=== PATIENT | male | born 1960 | race Caucasian/White ===

== ENCOUNTER 2018-03-27 20:29 | Emergency (ER) | payer BC ==
[2018-03-27] MEDS ORDERED: DIPH,PERTUS(ACELL)TETVAC-LF 0.5 ML VIAL IM ONE (20:53)
[2018-03-27] MEDS ORDERED: SODIUM CHLORIDE 0.9% 1,000 ML IV STA (20:53)
[2018-03-27] MEDS ORDERED: HYDROmorphone 1 MG/ML 1 ML SYRINGE IVP STA ×2 (20:53→21:48)
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
[2018-03-27 21:13] LABS: Basophils # (A) 0.1 k/uL (0-0.2); Basophils % (A) 1 %; Eosinophils # (A) 0.4 k/uL (0-0.7); Eosinophils % (A) 2 %; HCT 50.5 % (39.0-53.0); HGB 16.5 gm/dL (13.0-17.5); Lymphocytes # (A) 2.2 k/uL (1.0-4.8); Lymphocytes % (A) 13 %; MCH 29.9 pg (25.0-35.0); MCHC 32.6 g/dL (31.0-37.0); MCV 91.7 fL (80.0-100.0); Mean Platelet Volume 6.6; Monocytes % (A) 6 %; Neutrophils # (A) 12.5 k/uL (1.3-7.7); Neutrophils % (A) 77 %; Platelet Count 331 k/uL (150-450); RBC 5.51 m/uL (4.30-5.90); RDW 13.3 % (11.5-15.5); WBC 16.3 k/uL (3.8-10.6)
[2018-03-27 21:17] LABS: INR 0.9 (<1.2); Partial Thromboplastin Time 24.1 sec (22.0-30.0); Prothrombin Time 10.2 sec (9.0-12.0)
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
[2018-03-27 21:20] LABS: ALT 44 U/L (21-72); AST 38 U/L (17-59); Albumin 4.9 g/dL (3.5-5.0); Alcohol <10 mg/dL; Alkaline Phosphatase 116 U/L (38-126); Amylase 53 U/L (30-110); Anion Gap 12 mmol/L; Blood Urea Nitrogen 18 mg/dL (9-20); Calcium 10.1 mg/dL (8.4-10.2); Carbon Dioxide 22 mmol/L (22-30); Chloride 109 mmol/L (98-107); Glucose 105 mg/dL (74-99); Lipase 128 U/L (23-300); Potassium 4.1 mmol/L (3.5-5.1); Sodium 143 mmol/L (137-145); Total Bilirubin 1.2 mg/dL (0.2-1.3)
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
[2018-03-27 21:31] LABS: Glucose,Whole Blood 107 mg/dL (75-99)
[2018-03-27 21:35] LABS: Creatine Kinase 212 U/L (55-170)
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
[2018-03-27 21:48] LABS: Creatine Kinase MB 1.7 ng/mL (0.0-2.4); Troponin I <0.012 ng/mL (0.000-0.034)
[2018-03-27 21:49] VITALS: TEMP 98.2
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
[2018-03-27] MEDS ORDERED: ETOMIDATE 2 MG/ML 10 ML VIAL IVP STA (22:56)
[2018-03-27 23:45] LABS: Amphetamine Screen,Urine Not Detected (NotDetected); Barbiturate Screen,Urine Not Detected (NotDetected); Benzodiazepines Screen,Urine Not Detected (NotDetected); Cocaine Screen,Urine Not Detected (NotDetected); Methadone Screen, Urine Not Detected (NotDetected); Opiate Screen,Urine Not Detected (NotDetected); Oxycodone Screen, Urine Not Detected (NotDetected); Phencyclidine Screen,Urine Not Detected (NotDetected); Tricyclic Antidepressant,Urine Not Detected (NotDetected); Urn Cannabinoid Scrn Not Detected (NotDetected)
[2018-03-27 23:49] VITALS: BP 189/109; PULSE 89; RESP 18
[2018-03-27 23:55] LABS: Appearance,Urine Clear (Clear); Bilirubin,Urine Negative (Negative); Blood,Urine Moderate (Negative); Color,Urine Yellow; Glucose,Urine (UA) Negative (Negative); Granular Casts,Urine 52 /lpf (0); Ketones,Urine 1+ (Negative); Leukocyte Esterase,Urine Negative (Negative); Mucus,Urine Rare /hpf; Nitrite,Urine Negative (Negative); PH, Urine 6.5 (5.0-8.0); Protein,Urine Negative (Negative); RBC,Urine 17 /hpf (0-5); Specific Gravity,Urine 1.034 (1.001-1.035); Urobilinogen,Urine <2.0 mg/dL (<2.0); WBC,Urine 1 /hpf (0-5)
[2018-03-28] MEDS ORDERED: ACET/COD 300 MG/30 MG STARTER PACK 6 TAB BTL PO STA (00:02)
[2018-03-28] MEDS ORDERED: hydrALAZINE HCL 20 MG/ML 1 ML VIAL IVP STA (00:04)
--- NOTE | 2018-03-28 00:13 | XR ---
EXAMINATION TYPE: XR wrist limited LT DATE OF EXAM: 03/27/2018 COMPARISON: Today HISTORY: Postreduction TECHNIQUE: 2 views FINDINGS: There is comminuted fractures of the distal radius with some impaction. There is no disloca tion. There is some anterior displacement of the carpus in relation to the shaft of the radius. There is nondisplaced fracture ulnar styloid process. IMPRESSION: Fractures as above. Comminuted displaced fracture of the distal radius is improved in pos ition compared to initial exam.
[2018-03-28] MEDS ORDERED: amLODIPine 5 MG TAB PO STA (00:37)
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
== END 2018-03-28 01:02 | disposition home or self-care (01) ==
LOC: EC 20:29
DX: S59.202A Unspecified physeal fracture of lower end of radius, left arm, initial encounter for closed fracture (principal); S52.612A Displaced fracture of left ulna styloid process, initial encounter for closed fracture; S60.512A Abrasion of left hand, initial encounter; S00.81XA Abrasion of other part of head, initial encounter; M54.5 Low back pain; F17.200 Nicotine dependence, unspecified, uncomplicated; Z79.1 Long term (current) use of non-steroidal anti-inflammatories (NSAID); Z23 Encounter for immunization; V86.02XA Driver of snowmobile injured in traffic accident, initial encounter; Y92.410 Unspecified street and highway as the place of occurrence of the external cause
CPT/HCPCS: 36415; 93005; 86900; 86901; 80053; 82150; 82550; 82553; 83605; 83690; 84484; 85025; 85610; 85730; 86850; 81001; 80306; 80320; 72170; 73090; 73100; 71045; 73200; 72125; 70450; 71260; 74177; 90715; 99285; 25605; 99152; 96374; 96375; 96376; 96361 ×4; 90471; J0360; J1170; Q9967

== ENCOUNTER 2018-04-02 14:06 | Observation (INO) | payer BC ==
[2018-03-31 08:55] VITALS: BMI 29.5
[~2018-04-02 14:06] MED LIST: HYDROmorphone 0.5 MG/0.5 ML SYRINGE IVP PRN; SCOPOLAMINE 1.5MG/72HR PATCH TRANSDERM ONE; ceFAZolin IN SWFI 2 GM/20 ML SYRINGE IVP ONE
[2018-04-02] MEDS ORDERED: LIDOCAINE 1% 20 ML VIAL (10MG/ML) FOR IV START INTRADERMA ONE (15:00)
[2018-04-02] MEDS: LACTATED RINGERS 1,000 ML IV SCH (15:00)
[2018-04-02] MEDS: ONDANSETRON 4 MG/2 ML VIAL IVP ONE ×2 (15:03→19:43)
[2018-04-02] MEDS: DEXAMETHASONE SOD PHOSPHATE 10 MG/ML 1 ML VIAL IV ONE ×2 (15:03→19:44)
[2018-04-02] MEDS ORDERED: fentaNYL (PF) 50 MCG/ML 2 ML AMP IVP ONE (15:08)
[2018-04-02] MEDS: MIDAZOLAM 2 MG/2 ML VIAL IV PRN ×2 (15:08→15:12)
--- NOTE | 2018-04-02 15:41 | P.ONQ ---
Anesthesiology Proc Note - PNB - Peripheral Nerve Block Performed Left Supraclavicular Single Time Out Performed: Yes Procedure Start Time: 15:07 Procedure Stop Time: 15:20 Indication: Requested by physician Specifically requested for management of pain by DrCarmelita: Charles Graham Sedation Type: Sedate with meaningful contact maintained Preparation: Sterile Prep Position: Supine Needle Types: Other (see comment) Needle Size: 100mm (4") (joel) Needle Gauge: 21 Technique: Ultrasound Injectate: 0.5% Ropivacaine (see comment for volume) Blood Aspirated: No Pain Paresthesia on Injection Noted: No Resistance on Injection: Normal Events: Uneventful and Well Tolerated (20 ml)
[2018-04-02] MEDS: ENALAPRILAT 1.25 MG/ML 1 ML VIAL IVP STA ×3 (15:57→21:19)
[2018-04-02] MEDS ORDERED: hydrALAZINE HCL 20 MG/ML 1 ML VIAL IVP PRN (17:27)
[2018-04-02] MEDS ORDERED: hydrALAZINE HCL 20 MG/ML 1 ML VIAL IV ONE (17:32)
[2018-04-02] MEDS ORDERED: ONDANSETRON 4 MG/2 ML VIAL IVP PRN (18:01)
[2018-04-02] MEDS ORDERED: HYDROmorphone 1 MG/ML 1 ML SYRINGE IV PRN (18:01)
[2018-04-02] MEDS ORDERED: NALOXONE 0.4 MG/ML 1 ML VIAL IV PRN (18:01)
[2018-04-02] MEDS ORDERED: SODIUM CHLORIDE 0.9% 1,000 ML IV SCH (18:15)
[2018-04-02 19:15] LABS: Basophils # (A) 0.1 k/uL (0-0.2); Basophils % (A) 0 %; Eosinophils # (A) 0.3 k/uL (0-0.7); Eosinophils % (A) 2 %; HCT 48.6 % (39.0-53.0); HGB 15.8 gm/dL (13.0-17.5); Lymphocytes # (A) 0.9 k/uL (1.0-4.8); Lymphocytes % (A) 6 %; MCH 30.4 pg (25.0-35.0); MCHC 32.6 g/dL (31.0-37.0); MCV 93.3 fL (80.0-100.0); Mean Platelet Volume 7.2; Monocytes # (A) 0.2 k/uL (0-1.0); Monocytes % (A) 1 %; Neutrophils # (A) 14.2 k/uL (1.3-7.7); Neutrophils % (A) 90 %; Platelet Count 295 k/uL (150-450); RBC 5.21 m/uL (4.30-5.90); RDW 13.3 % (11.5-15.5); WBC 15.7 k/uL (3.8-10.6)
--- NOTE | 2018-04-02 19:23 | P.HPADDEND ---
H&P Addendum H&P Addendum Date: 04/02/18 Mr. Lacey is a 57-year-old male who was scheduled to undergo ORIF of a complex left distal radius and radial shaft fracture. In preop, his blood pressure was found to be markedly elevated (>190/100). This improved with administration of blood pressure medications but still not to an optimal range for the proposed surgery. I discussed this in detail with the patient and the anesthesiologist and recommended postponing the procedure. I cited the increased risks of hemorrhage, compartment syndrome as well as intraoperative cardiovascular or cerebrovascular events. In addition, he still had moderately severe edema and skin irritation (from his splint) in the area of the planned incisions. The patient expressed understanding and was in agreement to postpone surgery. We will admit him for observation and consult internal medicine for evaluation and management of his uncontrolled hypertension. The patient admits that he has not seen a primary care physician in some time and does not take any regular medications except a multivitamin. He is a current one pack per day smoker. Since he did have a supraclavicular nerve block, we will continue regular neurovascular checks to monitor for compartment syndrome. He was instructed to continue icing and elevating the left wrist and perform regular range of motion exercises of the fingers. Once his blood pressure has been controlled on oral medication, he may be discharged home (if the internal medicine team is in agreement). We will reschedule him for outpatient surgery next week.
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
[2018-04-02 19:26] LABS: ALT 56 U/L (21-72); AST 39 U/L (17-59); Albumin 4.7 g/dL (3.5-5.0); Alkaline Phosphatase 118 U/L (38-126); Anion Gap 12 mmol/L; Blood Urea Nitrogen 19 mg/dL (9-20); Calcium 9.7 mg/dL (8.4-10.2); Carbon Dioxide 19 mmol/L (22-30); Chloride 111 mmol/L (98-107); Glucose 111 mg/dL (74-99); Potassium 4.3 mmol/L (3.5-5.1); Sodium 142 mmol/L (137-145); Total Bilirubin 1.2 mg/dL (0.2-1.3); Total Protein 7.8 g/dL (6.3-8.2)
[2018-04-02] MEDS: ENOXAPARIN 40 MG/0.4 ML SYRINGE SQ SCH (20:59)
[2018-04-02] MEDS: NICOTINE 21MG/24HR PATCH TRANSDERM SCH (21:00)
[2018-04-02] MEDS: HYDROcodone/APAP 5-325MG 1 EACH TAB PO PRN (21:00)
[2018-04-02] MEDS ORDERED: MELATONIN 3 MG TABLET PO PRN (21:23)
[2018-04-02] MEDS: LISINOPRIL 10 MG TAB PO SCH (21:43)
[2018-04-02] MEDS: amLODIPine 5 MG TAB PO SCH (21:43)
[2018-04-03] MEDS: HYDROcodone/APAP 5-325MG 1 EACH TAB PO PRN ×3 (01:42→12:44)
[2018-04-03] MEDS: LACTATED RINGERS 1,000 ML IV SCH (05:50)
[2018-04-03] MEDS ORDERED: PANTOPRAZOLE 40 MG TABLET PO SCH (07:30)
[2018-04-03 07:41] VITALS: RESP 14; TEMP 98
[2018-04-03] MEDS: NICOTINE 21MG/24HR PATCH TRANSDERM SCH (09:22)
[2018-04-03] MEDS: amLODIPine 5 MG TAB PO SCH (09:22)
[2018-04-03] MEDS: ENOXAPARIN 40 MG/0.4 ML SYRINGE SQ SCH (09:22)
[2018-04-03] MEDS: LISINOPRIL 10 MG TAB PO SCH (09:22)
--- NOTE | 2018-04-03 10:03 | P.PN ---
Subjective Progress Note Date: 04/03/18 Principal diagnosis: Distal radius/ulna fracture left wrist. Hypertension. This is a 57-year-old male who is scheduled for open reduction internal fixation of the left distal radius. His blood pressure was significantly elevated in preop holding. It was discussed with anesthesia and it was decided that the surgery would be postponed. The patient is admitted overnight to control his hypertension and for internal medicine evaluation and preoperative clearance. Patient's blood pressure has stabilized today. Objective - Vital Signs Vital signs: Vital Signs Temp 98.0 F 04/03/18 07:00 Pulse 82 04/03/18 07:00 Resp 14 04/03/18 07:00 BP 141/79 04/03/18 07:00 Pulse Ox 95 04/03/18 07:00 Intake & Output 04/02/18 04/03/18 04/03/18 18:59 06:59 18:59 Intake Total 500 510 Balance 500 510 Intake: IV 500 Intake, IV Titration 160 Amount Lactated Ringers 1,000 ml 160 @ 20 mls/hr IV .Q24H [facility] Rx#:[id number] Oral 350 Other: Voiding Method Toilet Urinal # Voids 2 2 - Exam This is a pleasant 57-year-old male in no acute distress. He is alert and oriented 3. Exam of the upper extremity reveals a splint is intact. He has full finger motion with minimal pain. Capillary refill is less than 3 seconds to the fingers. Neurovascular status to the upper extremity is intact. - Labs CBC & Chem 7: 04/02/18 18:55 04/02/18 18:55 Labs: Abnormal Lab Results - Last 24 Hours (Table) 04/02/18 04/02/18 Range/Units 18:55 18:55 WBC 15.7 H (3.8-10.6) k/uL Neutrophils # 14.2 H (1.3-7.7) k/uL Lymphocytes # 0.9 L (1.0-4.8) k/uL Chloride 111 H (98-107) mmol/L Carbon Dioxide 19 L (22-30) mmol/L Creatinine 0.60 L (0.66-1.25) mg/dL Glucose 111 H (74-99) mg/dL Assessment and Plan (1) Hypertension Current Visit: Yes Status: Acute Code(s): I10 - ESSENTIAL (PRIMARY) HYPERTENSION SNOMED Code(s): 47487410 (2) Closed fracture distal radius and ulna Current Visit: No Status: Acute Code(s): S52.509A - UNSP FRACTURE OF THE LOWER END OF UNSP RADIUS, INIT; S52.609A - UNSP FRACTURE OF LOWER END OF UNSP ULNA, INIT FOR CLOS FX SNOMED Code(s): 66359126 Plan: The clinical findings are discussed the patient. He may be discharged to home today if cleared medically. Our office will contact him on Thursday to reschedule his surgery for next week.
[2018-04-03 10:57] VITALS: BP 160/74; PULSE 80
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
--- NOTE | 2018-04-04 09:44 | P.DS ---
Providers Date of admission: 04/02/18 18:01 Expected date of discharge: 04/03/18 Attending physician: Charles Graham DO Consults: 04/02/18 18:08 Consult Physician Routine Consulting Provider: Herson Yañez Consult Reason/Comments: Medical management a presurgical eval Do you want consulting provider notified?: Yes Primary care physician: Stated None - Discharge Diagnosis(es) (1) Closed fracture distal radius and ulna Status: Acute (2) Hypertension Status: Acute Hospital Course: The patient was scheduled to undergo outpatient ORIF for a left distal radius fracture. Preop vitals showed markedly elevated blood pressure which failed to adequately improve with medication. The procedure was cancelled and the patient was admitted for further evaluation and management. He was seen and treated by the internal medicine team and his blood pressure improved. He was discharged home on oral anti-hypertensives and instructed to establish care with a PCP. He will follow up with Dr. Graham and his fracture surgery will be rescheduled outpatient. Patient Condition at Discharge: Stable Plan - Discharge Summary Discharge Rx Participant: Yes New Discharge Prescriptions: New amLODIPine [Norvasc] 5 mg PO DAILY #30 tab Lisinopril [Zestril] 10 mg PO DAILY #30 tab Nicotine 21Mg/24Hr Patch [Habitrol] 1 patch TRANSDERM DAILY #14 patch Continue Multivitamins, Thera [Multivitamin (formulary)] 1 tab PO DAILY HYDROcodone/APAP 5-325MG [[place] 5-325] 1 tab PO Q6HR PRN PRN Reason: Pain Discharge Medication List Multivitamins, Thera [Multivitamin (formulary)] 1 tab PO DAILY 03/27/18 [History ] HYDROcodone/APAP 5-325MG [[place] 5-325] 1 tab PO Q6HR PRN 03/31/18 [History] Lisinopril [Zestril] 10 mg PO DAILY #30 tab 04/03/18 [Rx] Nicotine 21Mg/24Hr Patch [Habitrol] 1 patch TRANSDERM DAILY #14 patch 04/03/18 [ Rx] amLODIPine [Norvasc] 5 mg PO DAILY #30 tab 04/03/18 [Rx] Follow up Appointment(s)/Referral(s): Radha Arango MD [REFERRING] - 1 Week Petrocelli,Charles A, DO [Medical Doctor] - As Needed (Patient to call Thursday to make appointment for outpatient surgery) Patient Instructions/Handouts: Wrist Fracture in Adults (DC) Activity/Diet/Wound Care/Special Instructions: Patient to find primary care physician and follow up with them. Maintain splint left upper extremity. Continue Ice & elevation. Our office will call him to reschedule his surgery for next week. Discharge Disposition: HOME SELF-CARE
== END 2018-04-03 13:04 | disposition home or self-care (01) ==
LOC: OR 14:06 → EDSTATUS 16:15 → 4SSUR 18:01
PROVIDERS: ADMIT Orthopaedic Surgery; ATTEND Orthopaedic Surgery
DX: I10 Essential (primary) hypertension (principal); Z53.09 Procedure and treatment not carried out because of other contraindication; S52.502A Unspecified fracture of the lower end of left radius, initial encounter for closed fracture; S52.202A Unspecified fracture of shaft of left ulna, initial encounter for closed fracture; D72.829 Elevated white blood cell count, unspecified; F17.210 Nicotine dependence, cigarettes, uncomplicated; M54.9 Dorsalgia, unspecified; G89.29 Other chronic pain; Z80.9 Family history of malignant neoplasm, unspecified; Z79.899 Other long term (current) drug therapy; V86.52XA Driver of snowmobile injured in nontraffic accident, initial encounter; Y93.29 Activity, other involving ice and snow
CPT/HCPCS: 64418; 96376; 96372 ×2; 96374; 96375 ×2; 93005; 80053; 85025; 71046; G0378 ×2; S4990 ×2; J2250; J0360; J1100; J2405; J1650 ×2; J3010; J1170

== ENCOUNTER 2018-04-09 11:26 | Day surgery (SDC) | payer BC ==
[~2018-04-09 11:26] MED LIST changes: +DEXAMETHASONE SOD PHOSPHATE 10 MG/ML 1 ML VIAL IV ONE; -HYDROmorphone 0.5 MG/0.5 ML SYRINGE IVP PRN; +MIDAZOLAM (PF) 2 MG/2 ML VIAL IV PRN; +ONDANSETRON 4 MG/2 ML VIAL IVP ONE; -SCOPOLAMINE 1.5MG/72HR PATCH TRANSDERM ONE
[2018-04-09] MEDS: LACTATED RINGERS 1,000 ML IV SCH (12:21)
[2018-04-09] MEDS ORDERED: LIDOCAINE 1% 20 ML VIAL (10MG/ML) FOR IV START INTRADERMA ONE (12:32)
[2018-04-09] MEDS ORDERED: GLYCOPYRROLATE 0.2 MG/ML 2 ML VIAL ONE (15:05)
[2018-04-09] MEDS ORDERED: SUCCINYLCHOLINE CHLORIDE 100 MG/5 ML SYR IV ONE (15:05)
[2018-04-09] MEDS ORDERED: fentaNYL (PF) 50 MCG/ML 2 ML AMP ONE (15:05)
[2018-04-09] MEDS ORDERED: HYDROmorphone (PF) 1 MG/ML ONE (15:05)
[2018-04-09] MEDS ORDERED: MIDAZOLAM 2 MG/2 ML VIAL ONE (15:05)
[2018-04-09] MEDS ORDERED: ePHEDrine SULFATE/0.9% NACL/PF 50 MG/5 ML SYRINGE IV ONE (15:05)
[2018-04-09] MEDS ORDERED: KETOROLAC 30 MG/ML 1 ML VIAL ONE (15:05)
[2018-04-09] MEDS ORDERED: LIDOCAINE 1% INJ 10MG/ML (20 ML MDV) ONE (15:05)
[2018-04-09] MEDS ORDERED: PROPOFOL 10 MG/ML 20 ML VIAL IV ONE (15:05)
[2018-04-09] MEDS ORDERED: ONDANSETRON 4 MG/2 ML VIAL ONE (15:05)
[2018-04-09] MEDS ORDERED: BUPIVACAIN-EPI 0.5%-1:200,000 30 ML VIAL SQ ONE ×2 (15:08)
[2018-04-09] MEDS ORDERED: LACTATED RINGERS 1,000 ML IV ONE (19:20)
[2018-04-09] MEDS: HYDROmorphone 0.5 MG/0.5 ML SYRINGE IVP PRN ×4 (21:20→21:45)
[2018-04-09] MEDS ORDERED: LACTATED RINGERS 1,000 ML IV SCH (22:00)
[2018-04-09] MEDS ORDERED: fentaNYL (PF) 50 MCG/ML 2 ML AMP IVP ONE ×2 (22:00→22:10)
[2018-04-09 22:48] VITALS: BMI 29.0
[2018-04-09] MEDS: oxyCODONE-APAP 5-325MG 1 EACH TAB PO PRN (22:54)
[2018-04-09] MEDS ORDERED: ONDANSETRON 4 MG/2 ML VIAL IVP PRN (23:16)
[2018-04-09] MEDS ORDERED: ceFAZolin 2,000 MG in DEXTROSE/WATER 1 50ML.BAG IVPB STA (23:16)
[2018-04-09] MEDS ORDERED: ceFAZolin IN SWFI 2 GM/20 ML SYRINGE IVP STA (23:23)
[2018-04-10 00:39] VITALS: RESP 18
[2018-04-10] MEDS: LACTATED RINGERS 1,000 ML IV SCH (01:03)
[2018-04-10] MEDS: oxyCODONE-APAP 5-325MG 1 EACH TAB PO PRN ×3 (02:43→10:35)
[2018-04-10 08:19] VITALS: BP 161/80; PULSE 86; TEMP 99.3
[2018-04-10] MEDS ORDERED: HYDROmorphone 1 MG/ML 1 ML SYRINGE IVP STA (08:54)
--- NOTE | 2018-04-10 10:45 | FL ---
Fluoroscopy History: FRACTURE 38 sec fluoro time. [address] Graham.
[2018-04-10] MEDS ORDERED: oxyCODONE-APAP 10-325MG 1 EACH TAB PO PRN (12:11)
[2018-04-10] MEDS ORDERED: LISINOPRIL 10 MG TAB PO SCH (12:15)
[2018-04-10] MEDS ORDERED: amLODIPine 5 MG TAB PO SCH (12:15)
--- NOTE | 2018-04-10 12:50 | P.PN ---
Progress Note - Text Progress Note Date: 04/10/18 Orthopedic Surgery - Progress Note S: Pt states pain became quite intense overnight but has been gradually improving with oral meds. Significant improvement after Dilaudid IVP. Reports pain in hand and forearm (worse volarly). Also notes decreased sensation in thumb. He's been working on ROM of fingers and trying to elevate. Hasn't used much ice. O: LUE - splint in place. FREDA slightly tight proximally - loosened and rewrapped. Pt felt immediate relief. Moderately severe edema of hand and fingers (only marginally increased since surgery). Able to perform limited AROM of fingers (due to swelling) but does not cause significant pain. Diminished light touch sensation in left thumb. Improved but persistent paresthesias across all digits. Hand warm & well perfused A: POD #1 S/p ORIF left distal radius and radial shaft with open CTR P: Splint adjusted and rewrapped. Instructed to continue ICE & elevation. Encourage finger ROM. Increase percocet to 2 tabs every 4 hours but return to 1 tab once pain level subsides. Plan for DC home this afternoon once pain control improves. Follow up outpatient in 5-7 days for wound check.
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
== END 2018-04-10 14:48 | disposition home or self-care (01) ==
LOC: OR 11:26 → 1SOBS 20:23 → OR 04-10 14:48
PROVIDERS: ATTEND Orthopaedic Surgery
DX: S52.572A Other intraarticular fracture of lower end of left radius, initial encounter for closed fracture (principal); S52.352A Displaced comminuted fracture of shaft of radius, left arm, initial encounter for closed fracture; S52.612A Displaced fracture of left ulna styloid process, initial encounter for closed fracture; G56.02 Carpal tunnel syndrome, left upper limb; Y93.29 Activity, other involving ice and snow; I10 Essential (primary) hypertension; Z87.891 Personal history of nicotine dependence; Z79.891 Long term (current) use of opiate analgesic; Z79.899 Other long term (current) drug therapy
CPT/HCPCS: 73100; 25609; 64721; C1713; J2250; J2405; J2001; J3010; J1885; J1170 ×3; J0330; J2704; J0690

== ENCOUNTER → 2020-08-01 | Outpatient (CLI) | payer BC ==
[~2020-08-01] MED LIST changes: -DEXAMETHASONE SOD PHOSPHATE 10 MG/ML 1 ML VIAL IV ONE; -MIDAZOLAM (PF) 2 MG/2 ML VIAL IV PRN; -ONDANSETRON 4 MG/2 ML VIAL IVP ONE; +REGADENOSON 0.4 MG/5 ML SYRINGE IV ONE; -ceFAZolin IN SWFI 2 GM/20 ML SYRINGE IVP ONE
--- NOTE | 2020-08-01 11:38 | NM ---
EXAMINATION TYPE: NM stress lexiscan cardiolite DATE OF EXAM: 08/01/2020 COMPARISON: NONE HISTORY: Chest pain TECHNIQUE: After the intravenous administration of 9.7 mCi Tc 99m Sestamibi - Cardiolite resting SPE CT images acquired 45 minutes post injection. The patient received 0.4mg Lexiscan, 24.8 mCi Tc 99m Sestamibi - Stress images obtained [address] injection FINDINGS: Review of stress and rest SPECT images demonstrates no distinct perfusion abnormality. Gated analysi s shows normal wall motion with an estimated left ventricular ejection fraction of 51 %. IMPRESSION: No scintigraphic evidence for reversible ischemia.
--- NOTE | 2020-08-01 14:08 | EST ---
EXERCISE STRESS DATE OF SERVICE: 08/01/2020 AGE: 60 SEX: M HT: @@ WT: @@ PROTOCOL: @@ STAGE: @@ DURATION OF EXERCISE: @@ HEART RATE REST: @@ BLOOD PRESSURE REST: @@ MAXIMUM HEART RATE ACHIEVED: @@ MAXIMUM BLOOD PRESSURE: @@ 85% MPHR: @@ 100% MPHR: @@ METS: @@ RESULTS: Pretesting physical examination showed a heart rate of 61, pressure is 159/92 mmHg. Baseline EKG showed sinus mechanism. 0.4 mg of Lexiscan given over 15 seconds per protocol. Max heart rate was 85 beats per minute. Maximum pressure was 151/92 mmHg. Clinically the patient did not have any symptoms and the EKG did not show any significant ST or T-wave abnormalities concerning for ischemia. CONCLUSION: 1. Nondiagnostic electrocardiogram stress response to Lexiscan. 2. Please follow up on the Cardiolite portion on a separate report from Radiology Department. MMODL / IJN: [id number] /
== END | disposition home or self-care (01) ==
LOC: RADNMMAIN 08:30
PROVIDERS: ATTEND Family Medicine
DX: R07.9 Chest pain, unspecified (principal)
CPT/HCPCS: 93017; 78452; A9500; J2785

== ENCOUNTER → 2020-10-30 | Outpatient (CLI) | payer BC ==
[2020-10-30 16:27] LABS: HGB 14.8 gm/dL (13.0-17.5); MCH 32.5 pg (25.0-35.0); MCHC 34.4 g/dL (31.0-37.0); MCV 94.3 fL (80.0-100.0); Mean Platelet Volume 7.3; Platelet Count 345 k/uL (150-450); RBC 4.56 m/uL (4.30-5.90); WBC 9.6 k/uL (3.8-10.6)
[2020-10-30 16:34] LABS: Appearance,Urine Clear (Clear); Bilirubin,Urine Negative (Negative); Blood,Urine Trace (Negative); Color,Urine Yellow; Glucose,Urine (UA) Negative (Negative); Ketones,Urine Negative (Negative); Leukocyte Esterase,Urine Negative (Negative); Mucus,Urine Rare /hpf; Nitrite,Urine Negative (Negative); Protein,Urine Negative (Negative); RBC,Urine 2 /hpf (0-5); Specific Gravity,Urine 1.014 (1.001-1.035); Squamous Epithelial Cell,Urine <1 /hpf (0-4); Urobilinogen,Urine <2.0 mg/dL (<2.0); WBC,Urine 5 /hpf (0-5)
[2020-10-30 16:35] LABS: INR 0.9 (<1.2); Partial Thromboplastin Time 24.2 sec (22.0-30.0)
[2020-10-30 16:40] LABS: ALT 34 U/L (4-49); AST 31 U/L (17-59); African American GFR (CKD) >90 (>60 ml/min/1.73 sqM); Albumin 4.5 g/dL (3.5-5.0); Alkaline Phosphatase 96 U/L (38-126); Anion Gap 9 mmol/L; Blood Urea Nitrogen 18 mg/dL (9-20); Calcium 9.8 mg/dL (8.4-10.2); Carbon Dioxide 24 mmol/L (22-30); Chloride 105 mmol/L (98-107); Glucose 104 mg/dL (74-99); Non-African American GFR(CKD) >90 (>60 ml/min/1.73 sqM); Potassium 3.7 mmol/L (3.5-5.1); Sodium 138 mmol/L (137-145); Total Bilirubin 0.6 mg/dL (0.2-1.3); Total Protein 7.2 g/dL (6.3-8.2)
== END | disposition home or self-care (01) ==
LOC: LABPAT 15:33
PROVIDERS: ATTEND Orthopaedic Surgery
DX: Z01.812 Encounter for preprocedural laboratory examination (principal); M16.11 Unilateral primary osteoarthritis, right hip
CPT/HCPCS: 36415; 80053; 81001; 85027; 85610; 85730; 87070

== ENCOUNTER 2020-11-05 07:44 | Day surgery (SDC) | payer BC ==
[2020-10-30 10:38] VITALS: BMI 29.5
[~2020-11-05 07:44] MED LIST changes: +ACETAMINOPHEN TAB 500 MG TAB PO PRN; +DEXAMETHASONE SOD PHOSPHATE 4 MG/ML 1 ML VIAL IV ONE; +GABAPENTIN 300 MG CAP PO PRN; +MELOXICAM 7.5 MG TAB PO PRN; +ONDANSETRON 4 MG/2 ML VIAL IVP ONE; -REGADENOSON 0.4 MG/5 ML SYRINGE IV ONE; +ROPIVACAINE/EPI/CLONIDINE/KET 50 ML SYRINGE MISCELLANE PRN; +TRANEXAMIC ACID 1,000 MG in SODIUM CHLORIDE 0.9% 100 ML IVPB PRN
[2020-11-05] MEDS: LACTATED RINGERS 1,000 ML IV SCH (08:30)
[2020-11-05] MEDS ORDERED: HYDROmorphone 1 MG/ML 1 ML SYRINGE IVP PRN (08:59)
[2020-11-05] MEDS ORDERED: NALOXONE 0.4 MG/ML 1 ML VIAL IV PRN (08:59)
[2020-11-05] MEDS ORDERED: hydrOXYzine pamoate 25 MG CAP PO PRN (08:59)
[2020-11-05] MEDS ORDERED: ONDANSETRON 4 MG/2 ML VIAL IVP PRN (08:59)
[2020-11-05] MEDS ORDERED: HYDROmorphone 0.2 MG/1 ML SYRINGE IVP PRN (08:59)
[2020-11-05] MEDS ORDERED: MAGNESIUM HYDROXIDE 2,400 MG/10 ML CUP PO PRN (08:59)
[2020-11-05] MEDS ORDERED: diazePAM 5 MG TAB PO PRN (08:59)
[2020-11-05] MEDS ORDERED: HYDROmorphone 0.5 MG/0.5 ML SYRINGE IVP PRN (08:59)
[2020-11-05] MEDS ORDERED: HYDROcodone/APAP 7.5-325MG 1 EACH TAB PO PRN (09:01)
[2020-11-05] MEDS ORDERED: LIDOCAINE 1% INJ 10MG/ML (20 ML MDV) ONE (09:02)
[2020-11-05] MEDS ORDERED: MIDAZOLAM 2 MG/2 ML VIAL ONE (09:02)
[2020-11-05] MEDS ORDERED: PROPOFOL 10 MG/ML 20 ML VIAL IV ONE (09:02)
[2020-11-05] MEDS ORDERED: HEPARIN SODIUM,PORCINE 10,000 UNIT/ML 1 ML VIAL ONE (09:02)
[2020-11-05] MEDS ORDERED: SODIUM CHLORIDE 0.9% 100 ML BAG ONE (09:02)
[2020-11-05] MEDS ORDERED: KETAMINE 10 MG/ML 20 ML VIAL ONE (09:02)
[2020-11-05] MEDS ORDERED: GLYCOPYRROLATE 0.2 MG/ML 2 ML VIAL ONE (09:02)
[2020-11-05] MEDS ORDERED: TRANEXAMIC ACID 1,000 MG/10 ML VIAL ONE (09:02)
[2020-11-05] MEDS ORDERED: SODIUM CHLORIDE 0.9% IRRIG 1,000 ML BTL IRRIGATION ONE (09:02)
[2020-11-05] MEDS ORDERED: PHENYLEPHRINE-0.9% NACL SYG 1,000 MCG/10 ML SYRINGE ONE (09:02)
[2020-11-05] MEDS ORDERED: fentaNYL (PF) 50 MCG/ML 2 ML AMP ONE (09:02)
[2020-11-05] MEDS ORDERED: ceFAZolin 1,000 MG in SODIUM CHLORIDE 0.9% 1,000 ML IRRIGATION ONE (09:05)
[2020-11-05] MEDS ORDERED: LACTATED RINGERS 1,000 ML IV ONE ×3 (09:49→12:25)
--- NOTE | 2020-11-05 10:30 | P.OP ---
Date of Procedure: 11/05/20 Preoperative Diagnosis: Severe osteoarthritis right hip Postoperative Diagnosis: Severe osteoarthritis right hip Procedure(s) Performed: Right total hip arthroplasty with a direct anterior approach Implants: [employer] Polarstem standard size 1 [employer] R3, 3 hole hemispherical acetabular shell, 52 mm [employer] Reflection 6.5 mm cancellus screw, 20 mm 2 [employer] R3, XLPE 20 acetabular liner [employer]hew Oxinium femoral head 36 m, +0 All components were press-fit. The articulation is Oxinium on polyethylene. Anesthesia: spinal Surgeon: Bo Queen Analysis Manager #1: Norma Frias Estimated Blood Loss (ml): 100 Pathology: other (Femoral head) Condition: stable Disposition: PACU Indications for Procedure: After failure of conservative treatment we discussed the surgical and nonsurgic al treatment options at length. Patient wishes to proceed with a total hip arthroplasty with a direct anterior approach. Complications specific to this procedure were discussed at length, including but not limited to infection, leg length discrepancy, dislocation, nerve injury, and fracture. Covid-19 was also discussed at length with the patient, and they are aware of the current policies and procedures. The patient was given the option of delaying surgery, but they elect to proceed knowing these risks. Patient is aware of all these complications and informed consent was obtained Operative Findings: The operative findings are consistent with severe osteoarthritis of the right hip Description of Procedure: Patient was seen and evaluated in the preoperative area and the consent was reviewed. The operative site was marked with a skin marker. The patient was then brought to the operating room and given preoperative antibiotics intravenously. 1 g of Tranexamic acid was also given intravenously. A spinal anesthetic was administered by the anesthesia department. The patient was then placed on the Burlington table with the bony prominences well-padded. The hip area was then prepped with a ChloraPrep solution and draped in the usual sterile fashion. A universal timeout was then performed, which confirmed the patient's name, surgical site, ALLERGIES, and procedure being performed on the consent. Next the incision site was located at 1 cm distal to the anterior superior iliac spine along the flexion crease of the hip. The skin and subcutaneous tissues were sharply incised. Incision was carefully dissected down to the fascia overlying the tensor fascia yaritza muscle. This fascia was then incised in line with the incision. Care was taken to stay laterally in order to avoid injuring the lateral femoral cutaneous nerve. Next, using blunt finger dissection, the tensor fascia yaritza muscle was dissected off its investing fascia. The muscle was then carefully retracted laterally with a cobra retractor over the lateral neck of the femur. Next, the circumflex vessels were identified and cauterized using the AquaMantis device. The anterior hip capsule was then exposed. The capsule was then opened and an inverted T fashion. Cobra retractors were then placed intracapsularly. The retractors were maintained intracapsular throughout the procedure. The proximal femur was then visualized. A small amount of traction was placed on the leg. The femoral neck was then osteotomized appropriate level above the lesser trochanter. A small wedge of bone was then removed from the remaining femoral head. Next, using a corkscrew the femoral head was removed from the acetabulum. On gross visual inspection, the femoral head had complete loss of articular cartilage and multiple periarticular osteophytes. The femoral head was then measured. Attention was then turned to the acetabulum. The acetabulum was exposed and any remaining labrum was excised. Sequential reaming of the acetabulum was performed using fluoroscopic guidance until there was a good bed of bleeding cancellus bone. When the appropriate size was reached, a trial was then placed. The position and fit of the trial was checked with fluoroscopy. The trial was then removed. Then, using fluoroscopic guidance, the final implant was impacted at 20 of anteversion and 40 of abduction, and fully seated in the acetabulum. 2 screws were then placed in the acetabulum. Again fluoroscopy was used to check position of the screws. Next, the liner was then impacted, with a 20 elevated liner located in the anterior superior quadrant. Component locking was confirmed. Attention was then directed to the femur. With the aid of the Burlington table, the femur was externally rotated to approximately 130, extended, and adducted under the opposite leg. A side hook was then placed under the proximal femur, and the side hook elevator was used to elevate the proximal femur while releasing the capsule. Retractors were then placed. A capsular release was performed, as well as a release of the conjoined tendon, which afforded excellent visualiz ation of the proximal femur. Next, a box osteotome was used to lateralize the proximal femur. A merchandise pickup/receiving associate was then used to locate the femoral canal. Sequential broaching was then performed with appropriate size which afforded excellent fixation in the proximal femur. A trial was then placed with appropriate head and neck, and the hip was gently reduced with the aid of the Burlington table. Fluoroscopy was then used to check position of the components, as well as to ensure equal leg lengths. The hip was then gently dislocated and the trials were then removed. Final implants were then impacted and the hip was again reduced. Final fluoroscopic x-rays confirmed that the components were in anatomic position, as well as equal leg lengths. The hip was also taken through range of motion, and found to be stable. The hip was then copiously irrigated with antibiotic solution with pulsatile lavage. The hip was then irrigated with Irrisept solution. The soft tissues were then injected with a ropivacaine solution, which consisted of 246.25 mg of ropivacaine, 0.5 mg of epinephrine, 30 mg of Toradol, 80 g of clonidine, and 48.45 mL of sterile water, for a total of 100 mL of fluid injected. A second dose of 1 g of Tranexamic acid was also given intravenously. Any blood collected by Cell Saver was then returned to the patient at this time. The fascia was then closed with 2-0 strata fix suture. The subcutaneous tissue was closed with 3-0 Vicryl. The subcuticular tissue was closed with 3-0 strata fix suture. The skin was then closed with Exofin skin glue. After the glue and dried, and Optifoam silver impregnated dressing was applied. The patient was then transferred to the recovery room in stable condition. The carpenter's assistant ANABELL Heredia was required due to the complexity of surgery, and the need for skilled surgical technician for positioning, draping, exposure, retraction, and closure of the wound.
--- NOTE | 2020-11-05 10:49 | XR ---
EXAMINATION TYPE: XR Hip Limited RT DATE OF EXAM: 11/05/2020 COMPARISON: NONE HISTORY: Postop TECHNIQUE: Two view submitted. FINDINGS: There is postsurgical change in near anatomic alignment. There is soft tissue edema and emphysema. IMPRESSION: 1. Postoperative change. Appears in near-anatomic alignment.
--- NOTE | 2020-11-05 10:50 | FL ---
EXAMINATION TYPE: FL guidance operating room DATE OF EXAM: 11/05/2020 HISTORY: Fluoroscopy time 18 seconds of fluoroscopy provided. IMPRESSION: 1. Fluoroscopy time.
[2020-11-05] MEDS: HYDROmorphone 0.5 MG/0.5 ML SYRINGE IVP PRN ×3 (10:59→12:25)
--- NOTE | 2020-11-05 11:50 | XR ---
EXAMINATION TYPE: XR Hip Limited RT DATE OF EXAM: 11/05/2020 CLINICAL HISTORY: Right hip pain and osteoarthritis. TECHNIQUE: Single AP portable view of right hip is obtained immediately postoperatively. COMPARISON: Pelvic x-ray March 27, 2018. FINDINGS: Metallic hardware from right hip arthroplasty is seen and appears satisfactory in alignment and position. There is evidence of recent surgery with surrounding subcutaneous gas noted. IMPRESSION: Metallic hardware from right hip arthroplasty is satisfactory in position.
[2020-11-05] MEDS ORDERED: SODIUM CHLORIDE 0.9% 1,000 ML IV ONE ×2 (14:45)
[2020-11-05] MEDS: SODIUM CHLORIDE 0.9% 1,000 ML IV SCH ×2 (16:14→22:11)
[2020-11-05] MEDS: HYDROcodone/APAP 7.5-325MG 1 EACH TAB PO PRN (16:23)
[2020-11-05] MEDS ORDERED: SENNOSIDES-DOCUSATE SODIUM 1 EACH TAB PO SCH (21:00)
[2020-11-05] MEDS: ASPIRIN 325 MG TAB PO SCH (22:10)
[2020-11-06] MEDS ORDERED: MELOXICAM 7.5 MG TAB PO PRN (05:00)
[2020-11-06] MEDS ORDERED: TRANEXAMIC ACID 1,000 MG in SODIUM CHLORIDE 0.9% 100 ML IVPB PRN ×4 (05:00)
[2020-11-06] MEDS ORDERED: ROPIVACAINE/EPI/CLONIDINE/KET 50 ML SYRINGE MISCELLANE PRN (05:00)
[2020-11-06] MEDS ORDERED: ACETAMINOPHEN TAB 500 MG TAB PO PRN (05:00)
[2020-11-06] MEDS ORDERED: GABAPENTIN 300 MG CAP PO PRN (05:00)
[2020-11-06] MEDS: LACTATED RINGERS 1,000 ML IV SCH (05:58)
[2020-11-06] MEDS: HYDROcodone/APAP 7.5-325MG 1 EACH TAB PO PRN (06:33)
[2020-11-06 08:01] VITALS: BP 134/78; PULSE 56; RESP 16; TEMP 97.8
[2020-11-06] MEDS: ASPIRIN 325 MG TAB PO SCH (08:11)
--- NOTE | 2020-11-06 08:58 | P.DS ---
Providers Expected date of discharge: 11/06/20 Attending physician: Bo Queen Consults: 11/05/20 08:59 Consult Physician Routine Consulting Provider: Ghassan Suggs Consult Reason/Comments: medical mangement Do you want consulting provider notified?: Yes Primary care physician: Dacia Hudson - Discharge Diagnosis(es) (1) S/P total hip arthroplasty Current Visit: Yes Status: Acute (2) Osteoarthritis of right hip Current Visit: Yes Status: Acute Hospital Course: This is a 60-year-old male with known history of degenerative arthritis of the right hip. The patient presented for evaluation as an outpatient. After discussion and consideration patient elects to proceed with total hip arthroplasty. The patient is seen preoperatively by Dr. Queen and medically cleared for surgery by their primary care physician. Patient is admitted to [facility] on 11/05/2020 for total hip arthroplasty. The procedure is performed without complication or sequelae. The patient is doing well postoperatively. Labs and vital signs are stable on day of discharge. On day of discharge patient's hip incision is healing well. There is minimal erythema. There is no drainage noted at this time. There is minimal soft tissue swelling to the hip and thigh. Patient has full foot and ankle motion without difficulty or pain. Calf is soft and nontender to palpation. Neurovascular status to the right lower extremity is intact. Patient is discharged home in good condition. Opioid start talking form is reviewed and signed. Please see med rec for accurate list of home medications. Plan - Discharge Summary Discharge Rx Participant: Yes New Discharge Prescriptions: New Sennosides [Senokot] 2 tab PO DAILY PRN #60 tablet PRN Reason: Constipation Ondansetron Odt [Zofran Odt] 1 tab PO Q8HR PRN #10 tab PRN Reason: Nausea Aspirin 325 mg PO BID #60 tab HYDROcodone/APAP 7.5-325MG [Genoa 7.5-325] 1 - 2 tab PO Q6H PRN #32 tab PRN Reason: Pain No Action Multivitamins, Thera [Multivitamin (formulary)] 1 tab PO DAILY amLODIPine [Norvasc] 5 mg PO QAM Atorvastatin [Lipitor] 20 mg PO DAILY Lisinopril-Hctz 20-25 mg [Zestoretic 20-25] 20 - 25 mg PO DAILY Ibuprofen [Motrin] 800 mg PO RT-Q8H PRN PRN Reason: Pain Discharge Medication List Multivitamins, Thera [Multivitamin (formulary)] 1 tab PO DAILY 03/27/18 [History] amLODIPine [Norvasc] 5 mg PO QAM 04/07/18 [History] Aspirin 325 mg PO BID #60 tab 11/05/20 [Rx] Atorvastatin [Lipitor] 20 mg PO DAILY 11/05/20 [History] HYDROcodone/APAP 7.5-325MG [Genoa 7.5-325] 1 - 2 tab PO Q6H PRN #32 tab 11/05/20 [Rx] Ibuprofen [Motrin] 800 mg PO RT-Q8H PRN 11/05/20 [History] Lisinopril-Hctz 20-25 mg [Zestoretic 20-25] 20 - 25 mg PO DAILY 11/05/20 [History] Ondansetron Odt [Zofran Odt] 1 tab PO Q8HR PRN #10 tab 11/05/20 [Rx] Sennosides [Senokot] 2 tab PO DAILY PRN #60 tablet 11/05/20 [Rx] Follow up Appointment(s)/Referral(s): Bo Queen DO [Doctor of Osteopathic Medicine] - 2 Weeks Activity/Diet/Wound Care/Special Instructions: Weightbearing as tolerated with walker. Leave dressing intact. Dressing may be removed by home care nurse or by patient in 7 days. Then change dressing twice daily until follow up. May shower with initial dressing intact and after removal. If dressing become saturated, please remove. Please take aspirin 325mg twice daily for 30 days to prevent blood clots. Recommend use of compression stockings daily until follow up to help prevent swelling and blood clots. May remove at night before sleeping. Please follow-up with [facility] in 2 weeks and call with any questions or concerns, . Discharge Disposition: HOME WITH HOME HEALTH SERVICES
[2020-11-06 09:37] LABS: HCT 34.5 % (39.6-50.0); HGB 11.6 g/dL (13.0-17.0); MCH 31.7 pg (27.0-32.0); MCHC 33.6 g/dL (32.0-37.0); MCV 94.3 fL (80.0-97.0); Mean Platelet Volume 10.5 fL (9.5-12.2); Platelet Count 253 X 10*3/uL (140-440); RBC 3.66 X 10*6/uL (4.40-5.60); RDW 12.4 % (11.5-14.5); WBC 15.72 X 10*3/uL (4.50-10.00)
[2020-11-06 10:07] LABS: Basophils # (A) 0.02 X 10*3/uL (0.00-0.10); Basophils % (A) 0.1 %; Eosinophils # (A) 0.03 X 10*3/uL (0.04-0.35); Eosinophils % (A) 0.2 %; Lymphocytes % (A) 12.7 %; Monocytes # (A) 2.14 X 10*3/uL (0.20-1.00); Monocytes % (A) 13.6 %; Neutrophils # (A) 11.44 X 10*3/uL (1.80-7.70); Neutrophils % (A) 72.8 %
--- NOTE | 2020-11-06 13:51 | P.CONS ---
History of Present Illness - Reason for Consult Consult date: 11/05/20 Medical Management of history of hypertension and high cholesterol - History of Present Illness This is a 60-year-old male with a past medical history of hypertension, hyperlipidemia, osteoarthritis and was admitted for elective surgery of right hip arthroplasty with Dr. Queen. Patient primary care provider is Dr. Cade and takes lisinopril/hydrochlorothiazide along with Norvasc and Lipitor in the outpatient setting. Home medications were held to monitor closely for postoperative hypotension and most recent blood pressure is 134/78 and instructed the patient to resume home medications. Patient has been up and walking with a walker and will be having rehab in the outpatient setting and will be following closely in the outpatient setting with orthopedics and continued on aspirin 325 mg twice daily for DVT prophylaxis. Patient denies any chest pain, shortness of breath, or palpitations. Patient is afebrile. No reports of nausea or vomiting noted and patient is tolerating diet. Patient was medically cleared by primary care physician for elective surgery prior to admission yesterday. Review of Systems Constitutional: Denies chills, Denies fever Cardiovascular: Denies chest pain, Denies shortness of breath Respiratory: Denies cough Gastrointestinal: Denies abdominal pain, Denies diarrhea, Denies nausea, Denies vomiting Musculoskeletal: Denies myalgias Integumentary: Denies pruritus, Denies rash Neurological: Denies numbness, Denies weakness Psychiatric: Denies anxiety, Denies depression Endocrine: Denies fatigue, Denies weight change Past Medical History Past Medical History: Hyperlipidemia, Hypertension, Osteoarthritis (OA) Additional Past Medical History / Comment(s): fx left wrist fx,recent admission for elevated b/p,broken ribs, chronic back pain History of Any Multi-Drug Resistant Organisms: None Reported Past Surgical History: Orthopedic Surgery Additional Past Surgical History / Comment(s): left wrist surgery. COLONOSCOPY Past Anesthesia/Blood Transfusion Reactions: No Reported Reaction Additional Past Anesthesia/Blood Transfusion Reaction / Comm: never has had general anesthesia or blood transfusion Past Psychological History: No Psychological Hx Reported Smoking Status: Current some day smoker Past Alcohol Use History: Occasional Additional Past Alcohol Use History / Comment(s): Pt. reports he smoked for 5-6 years and then quit for 10 years, and then restarted smoking in 1998-WILL SMOKE A FEW WHEN OUT WITH FRIENDS Past Drug Use History: Marijuana Additional Drug Use History / Comment(s): uses marijuana approx 3-4 times per yr. MAINLY USING GUMMIES AT NIGHT FOR PAIN-INSTRUCTED TO REFRAIN FROM USE FOR AT LEAST 24 HOURS PRIOR TO PROCEDURE - Past Family History Mother Family Medical History: Cancer Medications and Allergies Home Medications Medication Instructions Recorded Confirmed Type Multivitamins, Thera [Multivitamin 1 tab PO DAILY 03/27/18 11/05/20 History (formulary)] amLODIPine [Norvasc] 5 mg PO QAM 04/07/18 11/05/20 History Aspirin 325 mg PO BID #60 tab 11/05/20 Rx Atorvastatin [Lipitor] 20 mg PO DAILY 11/05/20 11/05/20 History HYDROcodone/APAP 7.5-325MG [Schneider 1 - 2 tab PO Q6H PRN #32 tab 11/05/20 Rx 7.5-325] Ibuprofen [Motrin] 800 mg PO RT-Q8H PRN 11/05/20 11/05/20 History Lisinopril-Hctz 20-25 mg 20 - 25 mg PO DAILY 11/05/20 11/05/20 History [Zestoretic 20-25] Ondansetron Odt [Zofran Odt] 1 tab PO Q8HR PRN #10 tab 11/05/20 Rx Sennosides [Senokot] 2 tab PO DAILY PRN #60 tablet 11/05/20 Rx Allergies Allergy/AdvReac Type Severity Reaction Status Date / Time No Known Allergies Allergy Verified 11/05/20 08:04 Physical Exam Vitals: Vital Signs Temp Pulse Resp BP Pulse Ox 11/06/20 08:11 56 L 16 11/06/20 08:00 97.8 F 56 L 16 134/78 96 11/06/20 02:00 97.6 F 71 17 116/67 95 11/05/20 20:00 98.2 F 78 16 103/64 95 11/05/20 16:05 97.9 F 68 16 121/74 96 11/05/20 14:30 68 18 132/70 98 11/05/20 13:30 51 L 16 129/66 99 11/05/20 13:00 70 16 124/60 98 11/05/20 12:15 58 L 14 126/64 100 11/05/20 11:45 85 14 118/59 100 11/05/20 11:35 53 L 16 112/57 100 11/05/20 11:20 52 L 16 121/62 100 11/05/20 11:05 74 16 122/60 100 11/05/20 10:50 97.7 F 52 L 14 131/65 100 Intake and Output 11/05/20 11/06/20 11/06/20 22:59 06:59 14:59 Intake Total 240 Balance 240 Intake: Oral 240 Other: # Voids 1 Weight 91.4 kg Gen: This is a 60-year-old male awake, alert and oriented 3, well-developed, well-nourished. HEENT: Head is atraumatic, normocephalic. Pupils equal, round. Sclerae is anicteric. NECK: Supple. No JVD. No lymphadenopathy. No thyromegaly. LUNGS: Clear to auscultation. No wheezes or rhonchi. No intercostal retractions. HEART: Regular rate and rhythm. No murmur. ABDOMEN: Soft. Bowel sounds are present. No masses. No tenderness. EXTREMITIES: No pedal edema. No calf tenderness. Right hip surgical dressing is dry and intact with no surrounding erythema and minimal swelling noted NEUROLOGICAL: Patient is awake, alert and oriented x3. Cranial nerves 2 through 12 are grossly intact. Results CBC & Chem 7: 11/06/20 05:57 Assessment and Plan Assessment: Status post right hip arthroplasty secondary to degenerative arthritis of the right hip Mild leukocytosis, most likely reactive secondary to recent surgery Hypertension Hyperlipidemia Remote history of nicotine use Osteoarthritis Chronic back pain History of left wrist fracture requiring surgery DVT prophylaxis per primary service Plan: Recommend to resume home blood pressure medications on discharge and instructed the patient to monitor blood pressure readings and follow-up with primary care provider on discharge. She will be continued on aspirin 325 mg twice daily per orthopedic recommendations and will be following up with Dr. Queen in the outpatient setting in 2-3 weeks. White blood count this morning minimally elevated at 15.72 which is most likely reactive and recommending outpatient follow-up with repeat labs to monitor the downward trend. Patient is afebrile with no reports of shortness of breath or coughing. Vital signs are stable. Patient is anticipating discharge today and has worked with physical therapy and will be having rehab in the outpatient setting with family at the bedside. Will continue to follow with orthopedics during hospitalization. Thank you for this consultation. Time with Patient: Greater than 30
== END 2020-11-06 10:38 | disposition home health service (06) ==
LOC: OR 07:44 → 4SSUR 10:50 → OR 11-06 10:38
PROVIDERS: ATTEND Orthopaedic Surgery
DX: M16.11 Unilateral primary osteoarthritis, right hip (principal); Z79.899 Other long term (current) drug therapy; E78.2 Mixed hyperlipidemia; I10 Essential (primary) hypertension; M16.12 Unilateral primary osteoarthritis, left hip
CPT/HCPCS: 97161; 97165; 86891; 86900; 86901; 85025; 86850; 88300; 87635; 73501; 27130; P9022; C1776; J2250; J1644; J1100; J0690 ×3; J2405; J2001; J3010; J2370; J2704; J1170

== ENCOUNTER → 2021-02-01 | Outpatient (CLI) | payer BC ==
[2021-02-01 13:11] LABS: HCT 42.9 % (39.0-53.0); HGB 14.2 gm/dL (13.0-17.5); MCH 31.5 pg (25.0-35.0); MCHC 33.1 g/dL (31.0-37.0); MCV 95.1 fL (80.0-100.0); Mean Platelet Volume 8.1; Platelet Count 287 k/uL (150-450); RBC 4.51 m/uL (4.30-5.90); RDW 12.9 % (11.5-15.5); WBC 9.9 k/uL (3.8-10.6)
[2021-02-01 13:19] LABS: ALT 48 U/L (4-49); AST 48 U/L (17-59); African American GFR (CKD) >90 (>60 ml/min/1.73 sqM); Alkaline Phosphatase 137 U/L (38-126); Anion Gap 10 mmol/L; Blood Urea Nitrogen 17 mg/dL (9-20); Calcium 9.3 mg/dL (8.4-10.2); Carbon Dioxide 28 mmol/L (22-30); Chloride 103 mmol/L (98-107); Glucose 92 mg/dL (74-99); Non-African American GFR(CKD) >90 (>60 ml/min/1.73 sqM); Potassium 3.7 mmol/L (3.5-5.1); Sodium 141 mmol/L (137-145); Total Bilirubin 0.8 mg/dL (0.2-1.3); Total Protein 6.9 g/dL (6.3-8.2)
[2021-02-01 13:21] LABS: Appearance,Urine Clear (Clear); Bilirubin,Urine Negative (Negative); Blood,Urine Negative (Negative); Color,Urine Yellow; Glucose,Urine (UA) Negative (Negative); Ketones,Urine Negative (Negative); Leukocyte Esterase,Urine Negative (Negative); Nitrite,Urine Negative (Negative); PH, Urine 6.5 (5.0-8.0); Protein,Urine Trace (Negative); Specific Gravity,Urine 1.028 (1.001-1.035)
[2021-02-01 13:22] LABS: INR 0.9 (<1.2); Partial Thromboplastin Time 25.1 sec (22.0-30.0); Prothrombin Time 9.7 sec (9.0-12.0)
== END | disposition home or self-care (01) ==
LOC: LABPAT 11:23
PROVIDERS: ATTEND Orthopaedic Surgery
DX: Z01.812 Encounter for preprocedural laboratory examination (principal)
CPT/HCPCS: 36415; 80053; 81003; 85027; 85610; 85730; 87070

== ENCOUNTER 2021-02-11 08:42 | Day surgery (SDC) | payer BC, OTHER ==
[2021-02-07 11:39] VITALS: BMI 30.4
[~2021-02-11 08:42] MED LIST changes: +HYDROcodone/APAP 7.5-325MG 1 EACH TAB PO PRN; +HYDROmorphone 0.2 MG/1 ML SYRINGE IVP PRN; +HYDROmorphone 0.5 MG/0.5 ML SYRINGE IVP PRN; +MAGNESIUM HYDROXIDE 2,400 MG/10 ML CUP PO PRN; +NALOXONE 0.4 MG/ML 1 ML VIAL IV PRN; +ONDANSETRON 4 MG/2 ML VIAL IVP PRN; -ROPIVACAINE/EPI/CLONIDINE/KET 50 ML SYRINGE MISCELLANE PRN
[2021-02-11] MEDS: LACTATED RINGERS 1,000 ML IV SCH (09:35)
[2021-02-11] MEDS ORDERED: LIDOCAINE 1% (10MG/ML) FOR IV START INTRADERMA ONE (09:35)
[2021-02-11] MEDS ORDERED: fentaNYL (PF) 50 MCG/ML 2 ML AMP ONE (09:46)
[2021-02-11] MEDS ORDERED: PROPOFOL 10 MG/ML 20 ML VIAL IV ONE (09:46)
[2021-02-11] MEDS ORDERED: TRANEXAMIC ACID 1,000 MG/10 ML VIAL ONE (09:46)
[2021-02-11] MEDS ORDERED: PHENYLEPHRINE-0.9% NACL SYG 1,000 MCG/10 ML SYRINGE ONE (09:46)
[2021-02-11] MEDS ORDERED: SODIUM CHLORIDE 0.9% 100 ML BAG ONE (09:46)
[2021-02-11] MEDS ORDERED: KETAMINE 10 MG/ML 20 ML VIAL ONE (09:46)
[2021-02-11] MEDS ORDERED: SODIUM CHLORIDE 0.9% IRRIG 1,000 ML BTL IRRIGATION ONE (09:46)
[2021-02-11] MEDS ORDERED: MIDAZOLAM 2 MG/2 ML VIAL ONE (09:46)
[2021-02-11] MEDS ORDERED: HEPARIN SODIUM,PORCINE 10,000 UNIT/ML 1 ML VIAL ONE (09:46)
[2021-02-11] MEDS ORDERED: ceFAZolin 1,000 MG in SODIUM CHLORIDE 0.9% 1,000 ML IRRIGATION ONE (09:50)
[2021-02-11] MEDS ORDERED: ROPIVACAINE 5 MG/ML 30 ML VIAL MISCELLANE ONE ×2 (10:24→10:56)
--- NOTE | 2021-02-11 11:04 | P.OP ---
Date of Procedure: 02/11/21 Preoperative Diagnosis: Severe osteoarthritis of the left hip Postoperative Diagnosis: Severe osteoarthritis left hip Procedure(s) Performed: Left total hip arthroplasty with a direct anterior approach Implants: [employer] Polarstem standard size 2 [employer] R3, 3 hole hemispherical acetabular shell, 52 mm [employer] Reflection 6.5 mm cancellus screw, 20 mm 2 [employer] R3, XLPE 20 acetabular liner [employer] Oxinium femoral head 36 m, +0 All components were press-fit. The articulation is Oxinium on polyethylene. Anesthesia: spinal Surgeon: Bo Queen Doubling Machine Operator #1: Norma Frias Estimated Blood Loss (ml): 100 Pathology: other (Femoral head) Condition: stable Disposition: PACU Indications for Procedure: After failure of conservative treatment we discussed the surgical and nonsu rgical treatment options at length. Patient wishes to proceed with a total hip arthroplasty with a direct anterior approach. Complications specific to this procedure were discussed at length, including but not limited to infection, leg length discrepancy, dislocation, nerve injury, and fracture. Covid-19 was also discussed at length with the patient, and they are aware of the current policies and procedures. The patient was given the option of delaying surgery, but they elect to proceed knowing these risks. Patient is aware of all these complications and informed consent was obtained Operative Findings: The operative findings are consistent with severe osteoarthritis of the left hip Description of Procedure: Patient was seen and evaluated in the preoperative area and the consent was reviewed. The operative site was marked with a skin marker. The patient was then brought to the operating room and given preoperative antibiotics intravenously. 1 g of Tranexamic acid was also given intravenously. A spinal anesthetic was administered by the anesthesia department. The patient was then placed on the [place] table with the bony prominences well-padded. The hip area was then prepped with a ChloraPrep solution and draped in the usual sterile fashion. A universal timeout was then performed, which confirmed the patient's name, surgical site, ALLERGIES, and procedure being performed on the consent. Next the incision site was located at 1 cm distal and 2 cm lateral to the anterior superior iliac spine. The skin and subcutaneous tissues were sharply incised. Incision was carefully dissected down to the fascia overlying the tensor fascia yaritza muscle. This fascia was then incised in line with the incision. Care was taken to stay laterally in order to avoid injuring the lateral femoral cutaneous nerve. Next, using blunt finger dissection, the tensor fascia yaritza muscle was dissected off its investing fascia. The muscle was then carefully retracted laterally with a cobra retractor over the lateral neck of the femur. Next, the circumflex vessels were identified and cauterized using the AquaMantis device. The anterior hip capsule was then exposed. The capsule was then opened and an inverted T fashion. Cobra retractors were then placed intracapsularly. The retractors were maintained intracapsular throughout the procedure. The proximal femur was then visualized. Fluoroscopic x-rays were then taken in order to evaluate the preoperative leg lengths. A small amount of traction was placed on the leg. The femoral neck was then osteotomized appropriate level above the lesser trochanter. A small wedge of bone was then removed from the remaining femoral head. Next, using a corkscrew the femoral head was removed from the acetabulum. On gross visual inspection, the femoral head had complete loss of articular cartilage and multiple periarticular osteophytes. The femoral head was then measured. Attention was then turned to the acetabulum. The acetabulum was exposed and any remaining labrum was excised. Sequential reaming of the acetabulum was performed using fluoroscopic guidance until there was a good bed of bleeding cancellus bone. When the appropriate size was reached, a trial was then placed. The position and fit of the trial was checked with fluoroscopy. The trial was then removed. Then, using fluoroscopic guidance, the final implant was impacted at 20 of anteversion and 40 of abduction, and fully seated in the acetabulum. 2 screws were then placed in the acetabulum. Again fluoroscopy was used to check position of the screws. Next, the liner was then impacted, with a 20 elevated liner located in the anterior superior quadrant. Component locking was confirmed. Attention was then directed to the femur. With the aid of the [place] table, the femur was externally rotated to approximately 130, extended, and adducted under the opposite leg. A side hook was then placed under the proximal femur, and the side hook elevator was used to elevate the proximal femur while releasing the capsule. Retractors were then placed. A capsular release was performed, as well as a release of the conjoined tendon, which afforded excellent visualization of the proximal femur. Next, a box osteotome was used to lateralize the proximal femur. A field merchandiser was then used to locate the femoral canal. Sequential broaching was then performed with appropriate size which afforded excellent fixation in the proximal femur. A trial was then placed with appropriate head and neck, and the hip was gently reduced with the aid of the [place] table. Fluoroscopy was then used to check position of the components, as well as to ensure equal leg lengths. The hip was then gently dislocated and the trials were then removed. Final implants were then impacted and the hip was again reduced. Final fluoroscopic x-rays confirmed that the components were in anatomic position, as well as equal leg lengths. The hip was also taken through range of motion, and found to be stable. The hip was then copiously irrigated with antibiotic solution with pulsatile lavage. The hip was then irrigated with Irrisept solution. The soft tissues were then injected with a ropivacaine solution. A second dose of 1 g of Tranexamic acid was also given intravenously. Any blood collected by Cell Saver was then returned to the patient at this time. The fascia was then closed with 2-0 strata fix suture. The subcutaneous tissue was closed with 3-0 Vicryl. The subcuticular tissue was closed with 3-0 strata fix suture. The skin was then closed with Exofin skin glue. After the glue and dried, and Optifoam silver impregnated dressing was applied. The patient was then transferred to the recovery room in stable condition. The floral assistant ANABELL Heredia was required due to the complexity of surgery, and the need for skilled certified surgical technician for positioning, draping, exposure, retraction, and closure of the wound.
[2021-02-11] MEDS ORDERED: LACTATED RINGERS 1,000 ML IV ONE ×2 (11:17→15:56)
--- NOTE | 2021-02-11 11:29 | FL ---
EXAMINATION TYPE: FL guidance operating room DATE OF EXAM: 02/11/2021 HISTORY: Fluoroscopy time 24 seconds of fluoroscopy provided. IMPRESSION: 1. Fluoroscopy time.
--- NOTE | 2021-02-11 11:29 | XR ---
EXAMINATION TYPE: XR Hip Limited LT DATE OF EXAM: 02/11/2021 COMPARISON: NONE HISTORY: Postop TECHNIQUE: One view submitted. FINDINGS: There is postsurgical change in near anatomic alignment. There is soft tissue edema and emphysema. IMPRESSION: 1. Postoperative change. Appears in near-anatomic alignment.
[2021-02-11] MEDS: HYDROmorphone 0.5 MG/0.5 ML SYRINGE IVP PRN ×4 (12:51→15:58)
[2021-02-11] MEDS: HYDROcodone/APAP 7.5-325MG 1 EACH TAB PO PRN (17:53)
[2021-02-11] MEDS: HYDROmorphone 1 MG/ML 1 ML SYRINGE IVP PRN (20:47)
[2021-02-11] MEDS: ASPIRIN 325 MG TAB PO SCH (20:48)
[2021-02-11] MEDS: SODIUM CHLORIDE 0.9% 1,000 ML IV SCH (20:48)
[2021-02-11] MEDS ORDERED: SENNOSIDES-DOCUSATE SODIUM 1 EACH TAB PO SCH (21:00)
[2021-02-12] MEDS: HYDROcodone/APAP 7.5-325MG 1 EACH TAB PO PRN ×3 (00:47→13:03)
[2021-02-12] MEDS: HYDROmorphone 1 MG/ML 1 ML SYRINGE IVP PRN (03:44)
[2021-02-12] MEDS: ASPIRIN 325 MG TAB PO SCH (07:54)
[2021-02-12] MEDS: LACTATED RINGERS 1,000 ML IV SCH (07:56)
[2021-02-12 08:14] VITALS: BP 150/77; PULSE 72; RESP 16; TEMP 97.5
--- NOTE | 2021-02-12 08:14 | P.DS ---
Providers Expected date of discharge: 02/12/21 Attending physician: Bo Queen Consults: 02/11/21 08:30 Consult Physician Routine Consulting Provider: Herson Yañez Consult Reason/Comments: medical management Do you want consulting provider notified?: Yes Primary care physician: Dacia Hudson - Discharge Diagnosis(es) (1) Osteoarthritis of left hip Current Visit: Yes Status: Acute (2) S/P total hip arthroplasty Current Visit: No Status: Acute Hospital Course: This is a 60-year-old male with known history of degenerative arthritis of the left hip. The patient presented for evaluation as an outpatient. After discussion and consideration patient elects to proceed with total hip arthroplasty. The patient is seen preoperatively by Dr. Queen and medically cleared for surgery by their primary care physician. Patient is admitted to [facility] on 02/11/2021 for total hip arthroplasty. The procedure is performed without complication or sequelae. The patient is doing well postoperatively. Labs and vital signs are stable on day of discharge. On day of discharge patient's hip incision is healing well. There is minimal erythema. There is no drainage noted at this time. There is minimal soft tissue swelling to the hip and thigh. Patient has full foot and ankle motion without difficulty or pain. Calf is soft and nontender to palpation. Neurovascular status to the left lower extremity is intact. Patient is discharged home in good condition. Opioid start talking form is reviewed and signed. Please see med rec for accurate list of home medications. Plan - Discharge Summary Discharge Rx Participant: No New Discharge Prescriptions: New HYDROcodone/APAP 7.5-325MG [[place] 7.5-325] 1 - 2 tab PO Q6H PRN #32 tab PRN Reason: Pain Sennosides [Senokot] 2 tab PO DAILY PRN #60 tablet PRN Reason: Constipation Ondansetron Odt [Zofran Odt] 1 tab PO Q8HR PRN #10 tab PRN Reason: Nausea Aspirin 325 mg PO BID #60 tab No Action Multivitamins, Thera [Multivitamin (formulary)] 1 tab PO DAILY amLODIPine [Norvasc] 5 mg PO QAM Atorvastatin [Lipitor] 20 mg PO DAILY Lisinopril-Hctz 20-25 mg [Zestoretic 20-25] 20 - 25 mg PO DAILY Ibuprofen [Motrin] 800 mg PO RT-Q8H PRN PRN Reason: Pain Discharge Medication List Multivitamins, Thera [Multivitamin (formulary)] 1 tab PO DAILY 03/27/18 [History] amLODIPine [Norvasc] 5 mg PO QAM 04/07/18 [History] Atorvastatin [Lipitor] 20 mg PO DAILY 11/05/20 [History] Ibuprofen [Motrin] 800 mg PO RT-Q8H PRN 11/05/20 [History] Lisinopril-Hctz 20-25 mg [Zestoretic 20-25] 20 - 25 mg PO DAILY 11/05/20 [History] Aspirin 325 mg PO BID #60 tab 02/11/21 [Rx] HYDROcodone/APAP 7.5-325MG [[place] 7.5-325] 1 - 2 tab PO Q6H PRN #32 tab 02/11/21 [Rx] Ondansetron Odt [Zofran Odt] 1 tab PO Q8HR PRN #10 tab 02/11/21 [Rx] Sennosides [Senokot] 2 tab PO DAILY PRN #60 tablet 02/11/21 [Rx] Follow up Appointment(s)/Referral(s): Bo Queen DO [Doctor of Osteopathic Medicine] - 2 Weeks Activity/Diet/Wound Care/Special Instructions: Weightbearing as tolerated with walker. Leave dressing intact. Dressing may be removed by home care nurse or by patient in 7 days. Then change dressing twice daily until follow up. May shower with initial dressing intact and after removal. If dressing become saturated, please remove. Please take aspirin 325mg twice daily for 30 days to prevent blood clots. Recommend use of compression stockings daily until follow up to help prevent swelling and blood clots. May remove at night before sleeping. Please follow-up with [facility] in 2 weeks and call with any questions or concerns, . Discharge Disposition: HOME WITH HOME HEALTH SERVICES
[2021-02-12] MEDS ORDERED: MELOXICAM 7.5 MG TAB PO SCH (09:00)
[2021-02-12] MEDS ORDERED: ATORVASTATIN 20 MG TAB PO SCH (09:00)
[2021-02-12 11:24] LABS: Basophils # (A) 0.03 X 10*3/uL (0.00-0.10); Basophils % (A) 0.2 %; Eosinophils # (A) 0.04 X 10*3/uL (0.04-0.35); Eosinophils % (A) 0.3 %; HCT 38.2 % (39.6-50.0); HGB 11.8 g/dL (13.0-17.0); Lymphocytes # (A) 1.93 X 10*3/uL (0.90-5.00); Lymphocytes % (A) 14.4 %; MCH 29.9 pg (27.0-32.0); MCHC 30.9 g/dL (32.0-37.0); MCV 96.7 fL (80.0-97.0); Mean Platelet Volume 10.1 fL (9.5-12.2); Monocytes # (A) 1.85 X 10*3/uL (0.20-1.00); Monocytes % (A) 13.8 %; Neutrophils # (A) 9.52 X 10*3/uL (1.80-7.70); Neutrophils % (A) 70.9 %; Platelet Count 359 X 10*3/uL (140-440); RBC 3.95 X 10*6/uL (4.40-5.60); RDW 12.7 % (11.5-14.5); WBC 13.42 X 10*3/uL (4.50-10.00)
[2021-02-12] MEDS: SODIUM CHLORIDE 0.9% 1,000 ML IV SCH ×2 (12:28)
--- NOTE | 2021-02-12 14:04 | P.CONS ---
History of Present Illness - Reason for Consult Leukocytosis - History of Present Illness Patient is a pleasant 60-year-old male admitted for left total hip arthroplasty patient successfully underwent surgery patient is clinically doing well patient is well controlled is being discharged today patient is passing gas. Patient does have history of hypertension patient doesn't have any fever chills doesn't have any cough does have leukocytosis secondary to surgery. Patient blood pressure is bit elevated because he didn't receive his antihypertensive meds. REVIEW OF SYSTEMS: CONSTITUTIONAL: No fever, no malaise, no fatigue. HEENT: No recent visual problems or hearing problems. Denied any sore throat. CARDIOVASCULAR: No chest pain, orthopnea, PND, no palpitations, no syncope. PULMONARY: No shortness of breath, no cough, no hemoptysis. GASTROINTESTINAL: No diarrhea, no nausea, no vomiting, no abdominal pain. NEUROLOGICAL: No headaches, no weakness, no numbness. HEMATOLOGICAL: Denies any bleeding or petechiae. GENITOURINARY: Denies any burning micturition, frequency, or urgency. MUSCULOSKELETAL/RHEUMATOLOGICAL: Denies any joint pain, swelling, or any muscle pain. ENDOCRINE: Denies any polyuria or polydipsia. The rest of the 14-point review of systems is negative. PHYSICAL EXAMINATION: GENERAL: The patient is alert and oriented x3, not in any acute distress. Well developed, well nourished. HEENT: Pupils are round and equally reacting to light. EOMI. No scleral icterus. No conjunctival pallor. Normocephalic, atraumatic. No pharyngeal erythema. No thyromegaly. CARDIOVASCULAR: S1 and S2 present. No murmurs, rubs, or gallops. PULMONARY: Chest is clear to auscultation, no wheezing or crackles. ABDOMEN: Soft, nontender, nondistended, normoactive bowel sounds. No palpable organomegaly. MUSCULOSKELETAL: Deferred to orthopedic surgery EXTREMITIES: No cyanosis, clubbing, or pedal edema. NEUROLOGICAL: Gross neurological examination did not reveal any focal deficits. SKIN: No rashes. Assessment and plan -Leukocytosis: Reactive without any evidence of infection patient will not need any further workup patient clinically doesn't have any evidence of pneumonia and UTI -Hypertension patient can be resumed on home medications that is amlodipine, FREDA inhibitor and a diuretic if his blood pressure is low I asked him to hold off on the FREDA inhibitor diuretic combination at home. -Hyperlipidemia -Sleep apnea -Nicotine use: Counseling was provided -Patient is medically stable to discharged DVT prophylaxis: As per primary service Past Medical History Past Medical History: Hyperlipidemia, Hypertension, Osteoarthritis (OA), Sleep Apnea/CPAP/BIPAP Additional Past Medical History / Comment(s): chronic back pain, C PAP MACHINE, History of Any Multi-Drug Resistant Organisms: None Reported Past Surgical History: Orthopedic Surgery Additional Past Surgical History / Comment(s): left wrist surgery, TOTAL RIGHT HIP SURGERY. COLONOSCOPY Past Anesthesia/Blood Transfusion Reactions: No Reported Reaction Additional Past Anesthesia/Blood Transfusion Reaction / Comm: never has had general anesthesia or blood transfusion Smoking Status: Current every day smoker - Past Family History Mother Family Medical History: Cancer Medications and Allergies Home Medications Medication Instructions Recorded Confirmed Type Multivitamins, Thera [Multivitamin 1 tab PO DAILY 03/27/18 02/07/21 History (formulary)] amLODIPine [Norvasc] 5 mg PO QAM 04/07/18 02/07/21 History Atorvastatin [Lipitor] 20 mg PO DAILY 11/05/20 02/11/21 History Ibuprofen [Motrin] 800 mg PO RT-Q8H PRN 11/05/20 02/07/21 History Lisinopril-Hctz 20-25 mg 20 - 25 mg PO DAILY 11/05/20 02/07/21 History [Zestoretic 20-25] Aspirin 325 mg PO BID #60 tab 02/11/21 Rx HYDROcodone/APAP 7.5-325MG [[place] 1 - 2 tab PO Q6H PRN #32 tab 02/11/21 Rx 7.5-325] Ondansetron Odt [Zofran Odt] 1 tab PO Q8HR PRN #10 tab 02/11/21 Rx Sennosides [Senokot] 2 tab PO DAILY PRN #60 tablet 02/11/21 Rx Allergies Allergy/AdvReac Type Severity Reaction Status Date / Time No Known Allergies Allergy Verified 02/07/21 10:56 Physical Exam Vitals: Vital Signs Temp Pulse Pulse Resp BP Pulse Ox 02/12/21 08:00 97.5 F L 72 16 150/77 94 L 02/12/21 01:50 97.7 F 75 18 123/69 94 L 02/11/21 19:45 97.9 F 70 17 131/77 92 L 02/11/21 18:45 86 14 147/86 95 02/11/21 17:30 87 14 117/63 96 02/11/21 17:00 74 16 123/71 95 02/11/21 14:45 88 16 117/74 99 02/11/21 14:15 73 14 130/75 987 H Intake and Output 02/11/21 02/12/21 02/12/21 22:59 06:59 14:59 Intake Total 800 200 Balance 800 200 Intake: IV 800 Intake, IV Titration 200 Amount ceFAZolin 2 gm In Sodium 200 Chloride 0.9% 50 ml @ 100 mls/hr IVPB ONCE PRN Rx# :[id number] Other: Voiding Method Toilet Toilet Urinal Urinal Results CBC & Chem 7: 02/12/21 05:55 Labs: Abnormal Lab Results - Last 24 Hours (Table) 02/12/21 Range/Units 05:55 WBC 13.42 H (4.50-10.00) X 10*3/uL RBC 3.95 L (4.40-5.60) X 10*6/uL Hgb 11.8 L (13.0-17.0) g/dL Hct 38.2 L (39.6-50.0) % MCHC 30.9 L (32.0-37.0) g/dL Immature Gran # 0.05 H (0.00-0.04) X 10*3/uL Neutrophils # 9.52 H (1.80-7.70) X 10*3/uL Monocytes # 1.85 H (0.20-1.00) X 10*3/uL
== END 2021-02-12 13:37 | disposition home health service (06) ==
LOC: OR 08:42 → 4SSUR 11:16 → OR 02-12 13:37
PROVIDERS: ATTEND Orthopaedic Surgery
DX: M16.12 Unilateral primary osteoarthritis, left hip (principal); I10 Essential (primary) hypertension; E78.5 Hyperlipidemia, unspecified; F17.210 Nicotine dependence, cigarettes, uncomplicated; Z79.1 Long term (current) use of non-steroidal anti-inflammatories (NSAID); Z79.899 Other long term (current) drug therapy; Z96.641 Presence of right artificial hip joint; Z98.890 Other specified postprocedural states
CPT/HCPCS: 97162; 97535; 97165; 86891; 86900; 86901; 85025; 86850; 88300; 87635; 73501; 27130; C1776; J1100; J0690 ×3; J2405; J1170 ×3; J2795